=== PATIENT | male | born 2000 | race Hispanic/Latino ===

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

== ENCOUNTER → 2020-07-26 | Outpatient (REF) | payer BC ==
[2020-07-26 10:36] LABS: BASO % 0.6 % (0.0-1.0); EOS % 0.6 % (0.0-3.0); HEMOGLOBIN 14.7 g/dl (13.5-17.5); LYMPH % 31.5 % (24.0-44.0); MEAN CORPUSCULAR HEMOGLOBIN 29.8 pg (27.0-33.0); MEAN CORPUSCULAR HGB CONC 34.2 g/dl (32.0-36.5); MONO # 0.3 10^3/uL (0.0-0.8); MONO % 10.8 % (2.0-8.0); NEUTROPHILS # 1.8 10^3/uL (1.5-8.5); NEUTROPHILS % 56.5 % (36.0-66.0); PLATELET COUNT, AUTOMATED 243 10^3/uL (150-450); RED BLOOD COUNT 4.94 10^6/uL (4.30-6.10); WHITE BLOOD COUNT 3.1 10^3/uL (4.0-10.0)
[2020-07-26 11:04] LABS: ERYTHROCYTE SEDIMENTATION RATE 2 mm/hr (0-15)
== END ==
LOC: M PLALAB 09:43
PROVIDERS: ATTEND Orthopaedic Surgery
DX: M25.531 Pain in right wrist (principal)

== ENCOUNTER → 2020-08-18 | Outpatient (CLI) | payer BC ==
--- NOTE | 2020-08-19 09:24 | REP ---
INDICATION: PAIN KERI WRISTS. Bilateral wrist pain x1 year. COMPARISON: None. TECHNIQUE: Axial, coronal, and sagittal imaging planes utilized. T1 and T2 weighted scans are included with without fat saturation. FINDINGS: Cortical and medullary bone signal intensity are normal. There are 2 tiny subcortical cysts, 1 in the palm are aspect of the lunate and the other in the palm are aspect of the triquetrum. These are of no clinical significance. No juxta-articular cyst or mass is seen. There is no MR evidence of arthropathy. Triangular fibrocartilage appears intact. Flexor and extensor tendons are unremarkable. Carpal tunnel and its contents appear intact. No skeletal muscle signal intensity abnormality is seen. There is no evidence of ligament disruption. IMPRESSION: Unremarkable MRI study of the right wrist. <Electronically signed by Ortega Boland > 08/19/20 [id number]
--- NOTE | 2020-08-19 09:25 | REP ---
INDICATION: PAIN KERI WRISTS. COMPARISON: No comparison wrist radiographs.. TECHNIQUE: Axial, coronal, and sagittal imaging planes utilized. T1 and T2 weighted scans are obtained in the usual fashion with and without fat saturation. FINDINGS: Cortical and medullary bone signal intensity are normal. There are tiny subcortical cysts in the triquetrum and capitate, normal variant. No bony destructive lesion is seen. There is no MR evidence of arthropathy. The triangular fibrocartilage appears intact. Flexor and extensor tendons appear intact. The carpal tunnel and its contents are unremarkable. No juxta-articular cyst or mass is seen. No evidence of ligament disruption. IMPRESSION: Unremarkable MRI study of the left wrist. <Electronically signed by Ortega Boland > 08/19/20 [id number]
== END ==
LOC: M RAD 14:28
PROVIDERS: ATTEND Orthopaedic Surgery
DX: M25.531 Pain in right wrist (principal); M25.532 Pain in left wrist

== ENCOUNTER → 2020-09-04 | Outpatient (CLI) | payer BC ==
[2020-09-04 13:46] LABS: BASO % 0.8 % (0.0-1.0); EOS # 0.1 10^3/uL (0.0-0.5); EOS % 1.4 % (0.0-3.0); HEMATOCRIT 45.2 % (42.0-52.0); HEMOGLOBIN 15.1 g/dl (13.5-17.5); LYMPH # 1.1 10^3/uL (1.5-5.0); LYMPH % 29.5 % (24.0-44.0); MEAN CORPUSCULAR HEMOGLOBIN 29.2 pg (27.0-33.0); MEAN CORPUSCULAR HGB CONC 33.4 g/dl (32.0-36.5); MEAN CORPUSCULAR VOLUME 87.3 fl (80.0-96.0); MONO # 0.3 10^3/uL (0.0-0.8); MONO % 7.7 % (2.0-8.0); NEUTROPHILS # 2.2 10^3/uL (1.5-8.5); NEUTROPHILS % 60.3 % (36.0-66.0); PLATELET COUNT, AUTOMATED 254 10^3/uL (150-450); RED BLOOD COUNT 5.18 10^6/uL (4.30-6.10); WHITE BLOOD COUNT 3.6 10^3/uL (4.0-10.0)
[2020-09-04 15:02] LABS: HEPATITIS B CORE ANTIBODY IGM NEGATIVE (NEGATIVE); HEPATITIS B SURFACE ANTIBODY NEGATIVE (POSITIVE); HEPATITIS B SURFACE ANTIGEN NEGATIVE (NEGATIVE)
== END ==
LOC: M PLALAB 09:46
PROVIDERS: ATTEND Orthopaedic Surgery
DX: M25.532 Pain in left wrist (principal)

== ENCOUNTER → 2020-09-04 | Outpatient (CLI) | payer BC | LOC: M PLALAB 09:39 | PROVIDERS: ATTEND Dermatology | DX: L51.9 Erythema multiforme, unspecified (principal) ==

== ENCOUNTER → 2022-02-17 | Outpatient (CLI) | payer BC | LOC: M PLAIMG 13:51 | PROVIDERS: ATTEND Orthopaedic Surgery Hand Surgery | DX: M79.672 Pain in left foot (principal) ==

== ENCOUNTER → 2022-02-17 | Outpatient (CLI) | payer BC | LOC: M SOG 08:38 | PROVIDERS: ATTEND Orthopaedic Surgery Hand Surgery | DX: M79.672 Pain in left foot (principal) ==